=== PATIENT | female | born 1990 | race African-American/Black ===

== ENCOUNTER 2024-07-24 19:44 | Emergency (ER) | payer SELFPAY ==
[2024-07-24 19:49] VITALS: BP 115/70
[2024-07-24 20:14] LABS: % Basophils 0.5 % (0-2); % Eosinophils 1.2 % (0-6); % Immature Granulocytes 0.2 % (0-0.5); % Lymphocytes 22.8 % (20.5-51.1); % Monocytes 7.5 % (1.7-9.3); % Neutrophils 67.8 % (42.2-75.2); Absolute Basophils 0.1 10^3/uL (0-0.2); Absolute Eosinophils 0.1 10^3/uL (0-0.7); Absolute Lymphocytes 2.2 10^3/uL (1.2-3.4); Absolute Monocytes 0.7 10^3/uL (0.1-0.6); Absolute Neutrophils 6.5 10^3/uL (1.4-6.5); Hematocrit 34.8 % (37.0-47.0); Hemoglobin 11.8 g/dL (12.0-16.0); Mean Corp Hgb Conc. 33.9 g/dL (33.0-37.0); Mean Corpuscular Hgb 29.1 pg (27.0-31.0); Mean Corpuscular Volume 85.9 fL (81.0-99.0); Mean Platelet Volume 11.3 fL (7.4-10.4); Nucleated Red Blood Cells % 0 %; Platelet Count 239 10^3/uL (130-400); Red Blood Cell Count 4.05 10^6/uL (4.20-5.40); Red Cell Dist. Width 13.6 % (11.5-14.5); White Blood Cell Count 9.6 10^3/uL (4.8-10.8)
[2024-07-24 20:19] LABS: HCG, Serum Qualitative Screen Positive
[2024-07-24 20:25] LABS: ALT (SGPT) 12 U/L (0-35); AST (SGOT) 18 U/L (14-36); Albumin 4.4 g/dl (3.5-5.0); Alkaline Phosphatase 83 U/L (38-126); Blood Urea Nitrogen 13 mg/dl (7-17); Calcium 9.6 mg/dl (8.4-10.2); Carbon Dioxide 23 mmol/L (22-30); Chloride 107 mmol/L (98-107); Glucose 87 mg/dl (70-99); Potassium 4.1 mmol/L (3.5-5.1); Sodium 139 mmol/L (135-145); Total Bilirubin 0.3 mg/dl (0.2-1.3); Total Protein 6.9 g/dl (6.3-8.2); eGFR > 60.00
== END 2024-07-24 22:35 | disposition left against medical advice (07) ==
LOC: EMR 19:44
PROVIDERS: EMERGENCY PHYSICIAN Emergency Medicine
DX: R11.0 Nausea (principal); R53.83 Other fatigue; Z53.21 Procedure and treatment not carried out due to patient leaving prior to being seen by health care provider
CPT/HCPCS: 99281; 80053; 84702; 84703; 85025

== ENCOUNTER 2024-12-05 23:14 | Emergency (ER) | payer OTHER, SELFPAY ==
[2024-12-05 23:15] VITALS: BP 117/76
[2024-12-05 23:54] VITALS: BMI 35.0
[2024-12-05 23:55] VITALS: BP 141/50
[2024-12-05 23:57] VITALS: BP 144/50
--- NOTE | 2024-12-06 00:45 | ED.GENMED ---
History of Present Illness
General
Chief Complaint: Ear Problem
Source: patient
Time Seen by Provider: 12/06/24 00:25
History of Present Illness
History of Present Illness:
34-year-old female with no significant past medical history presents to the emergency department for evaluation of left-sided otalgia that started over the last 24 hours, has a history of abscesses within both years causing her concern for potential
infection. Patient states that she did try cleaning her ears the other day and thinks this may have exacerbated the symptoms. She denies any fullness sensation to her ears, fevers or infectious symptoms, sinus congestion, dental/oral pain or any
other concerns. Patient is currently 6-1/2 months , she did take some Tylenol for relief.
Past History
Past History
ED Past Medical History: None
ED Past Surgical History: None
Social History
Tobacco: Non-smoker
Alcohol: None
Drug: None
Personal: Single
Living: with family
Review of Systems
Review of Systems
All Other Systems: ROS reviewed and negative except as documented in HPI and ROS
Phy Exam
Physical Exam
Physical Exam:
GENERAL: Alert , in no apparent distress
EYE: conjunctiva clear
Head: Normocephalic atraumatic
NECK: Supple,
ENT: mmm. Left TM: erythematous, bulging, serous effusion noted. Right TM: normal, no effusions. No intraoral lesions or dental abscesses
LUNGS: no acute respiratory distress
NEUROLOGICAL: Alert and oriented
SKIN: Warm and dry, skin intact.
MUSCULOSKELETAL: well perfused.
PSYCH: Normal and appropriate interaction.
Scores
Heart Failure Risk
Heart Failure Risk Score: Not Applicable
Heart Score for Chest Pain Patients
STEMI patient?: Not applicable
Withdrawal Assessment of Alcohol
Withdrawal Assessment Completed?: Not applicable
Course
Orders/Labs/Results
Orders:
Orders
12/06/24 00:45
Amoxicillin [Amoxil] 500 mg PO NOW STA
Vital Signs
Initial and Last Documented VS:
Initial Vital Signs
Temp Pulse Resp BP Pulse Ox
98.3 F 85 18 117/76 99
12/05/24 23:15 12/05/24 23:15 12/05/24 23:15 12/05/24 23:15 12/05/24 23:15
Last Documented Vital Signs
Temp Pulse Resp BP Pulse Ox
98.3 F 88 18 144/50 99
12/05/24 23:15 12/05/24 23:57 12/05/24 23:57 12/05/24 23:57 12/06/24 00:46
MDM/Problems Addressed
Differential Diagnosis Includes:
Otitis media
Otitis externa
Mastoiditis
Dental infection
Sinusitis
Pharyngitis
MDM/Problems Addressed:
34-year-old female presented to the ER for evaluation of left-sided ear pain. There does appear to be a serous effusion to the left ear. There also appears to be some chronic changes to the left TM which may be residual from previous
procedures/abscesses. No sign of abscess presently. Will treat patient with amoxicillin. Counseled patient this would be safe during . Tylenol for pain as needed. ENT information provided for outpatient follow-up.
*Pulse Oximetry
SaO2: 99
Oxygen Mode of Delivery: Room air
Patient hypoxic: no
*Critical Care Note
Total Time (30-74mins, 75-104mins- exclusive of procedures): Not Applicable
ED Attending Note
-
Portions of this chart may have been created with voice recognition software.� Occasional wrong word or��sound alike� substitutions may have occurred due to the inherent limitations of voice recognition software.
Discharge Plan
Departure
Patient Disposition: Home (Routine Discharge)
Date of Disposition: 12/06/24
Time of Disposition: 00:45
Patient with high blood pressure during this ER visit?: Yes
Discharge Problem:
Otitis media of left ear
Instructions: Ear infection - ED (DC)
Prescriptions:
New
amoxicillin 500 mg tablet
500 mg PO BID Qty: 19 0RF
Referrals:
Bhanu Epstein MD [Active, Otology]
Interventions
Interventions:
*Risk Screen - Suicide Last Done: 12/05/24 23:15
*General Assessment Last Done: 12/05/24 23:15
*Neglect/Abuse Screening Last Done: 12/05/24 23:56
*ED- Fall Risk Assessment Last Done: 12/05/24 23:56
*ED COVID-19 Vaccine History Last Done: 12/05/24 23:56
Discharge Date and Time
Print Language: TURKISH
[2024-12-06] MEDS: AMOXIL 500 MG PO (01:12)
[2024-12-06 01:20] VITALS: BP 135/74
== END 2024-12-06 01:30 | disposition home or self-care (01) ==
LOC: EMR 23:14
PROVIDERS: EMERGENCY PHYSICIAN Student in an Organized Health Care Education/Training Program
DX: O99.891 Other specified diseases and conditions complicating pregnancy (principal); H66.92 Otitis media, unspecified, left ear; Z3A.26 26 weeks gestation of pregnancy
CPT/HCPCS: 99283